=== PATIENT | male | born 1995 | race Caucasian/White ===

== ENCOUNTER 2020-01-20 18:55 | Emergency (ER) | payer SELFPAY ==
[2020-01-20 19:01] VITALS: BP 132/77
--- NOTE | 2020-01-20 20:36 | ER Document Report ---
ED Medical Screen (RME) - General Chief Complaint: Abscess Stated Complaint: SWOLLEN FINGER Time Seen by Provider: 01/20/20 20:23 Primary Care Provider: JD BLACKBURN NP [Primary Care Provider] - Follow up as needed - [facility] Notes: 01/20/20 20:33 24 year old male presents today with complaints of left 2nd phalanx with erythema and induration warmth to touch over the last few days. states about a week ago he thought he had a splinter in his finger and started digging at his finger, which led to erythema and swelling of finger. Pain started about 2 to 3 days ago, 4/5, throbbing. Denies any history of MRSA. states is unable to bend his finger and the redness is extending up to his hand. Has tried peroxide without relief. Patient also would like to be tested for STDs, reports has had penile drainage for the last month. Denies any history of STIs. Has been sexually active without using any barrier methods. Does not know if his girlfriend has tested positive for STIs. Denies any fevers chills, numbness or tingling arms legs, denies any testicular pain, any penile shaft pain. I have greeted and performed a rapid initial assessment of this patient. A comprehensive ED assessment and evaluation of the patient, analysis of test results and completion of the medical decision making process will be conducted by additional ED providers. PHYSICAL EXAMINATION: GENERAL: Well-appearing, well-nourished and in no acute distress. HEAD: Atraumatic, normocephalic. CV: s1, s2 regular LUNGS: No respiratory distress Musculoskeletal: Normal range of motion. Left second phalanx with erythema induration, unable to bend at DIP or PIP, pain with passive extension. Refill less than 3 seconds. NEUROLOGICAL: Normal speech, normal gait. SKIN: Warm, Dry, normal turgor, no rashes or lesions noted. Erythema does not extend to dorsal left hand - Related Data Allergies/Adverse Reactions: No Known Allergies Allergy (Unverified 01/20/20 20:22) Past Medical History - Social History Frequency of alcohol use: None Drug Abuse: None Physical Exam - Vital signs Vitals: Temp Pulse Resp BP Pulse Ox 97.6 F 102 H 20 132/77 H 97 01/20/20 19:00 01/20/20 19:00 01/20/20 19:00 01/20/20 19:00 01/20/20 19:00 Course - Vital Signs Vital signs: Temp Pulse Resp BP Pulse Ox 97.6 F 102 H 20 132/77 H 97 01/20/20 19:00 01/20/20 19:00 01/20/20 19:00 01/20/20 19:00 01/20/20 19:00 Doctor's Discharge - Discharge Referrals: JD BLACKBURN [employer] [Primary Care Provider] - Follow up as needed
[2020-01-20 21:18] LABS: ABSOLUTE BASOPHILS # (AUTO) 0.1 10^3/uL (0.0-0.2); ABSOLUTE EOSINOPHILS # (AUTO) 0.2 10^3/uL (0.0-0.6); ABSOLUTE LYMPHOCYTES (AUTO) 1.7 10^3/uL (0.5-4.7); ABSOLUTE NEUT (AUTO) 14.2 10^3/uL (1.7-8.2); BASOPHILS % (AUTO) 0.3 % (0-2); EOSINOPHILS % (AUTO) 1.3 % (0-6); HEMATOCRIT 43.2 % (37.9-51.0); HEMOGLOBIN 14.2 g/dL (13.5-17.0); LYMPHOCYTES % (AUTO) 9.9 % (13-45); MEAN CORPUSCULAR HEMOGLOBIN 29.9 pg (27.0-33.4); MEAN CORPUSCULAR VOLUME 91 fl (80-97); PLATELET COUNT 293 10^3/uL (150-450); RED BLOOD COUNT 4.77 10^6/uL (4.35-5.55); RED CELL DISTRIBUTION WIDTH 12.2 % (11.5-14.0); SEGMENTED NEUTROPHILS % (AUTO) 82.5 % (42-78); TOTAL CELLS COUNTED % (AUTO) 100 %; WHITE BLOOD COUNT 17.2 10^3/uL (4.0-10.5)
[2020-01-20 21:24] LABS: APPEARANCE,URINE CLEAR; BILIRUBIN,URINE NEGATIVE (NEGATIVE); COLOR,URINE YELLOW; GLUCOSE, URINE NEGATIVE (NEGATIVE); KETONES,URINE NEGATIVE (NEGATIVE); LEUKOCYTE ESTERASE,URINE NEGATIVE (NEGATIVE); NITRITE,URINE NEGATIVE (NEGATIVE); PROTEIN,URINE NEGATIVE (NEGATIVE); URINE SPECIFIC GRAVITY 1.024
--- NOTE | 2020-01-20 21:42 | RADIOLOGY REPORT (SQ) ---
EXAM DESCRIPTION: FINGER LEFT [facility]: XR FINGERS Views: 2 CLINICAL HISTORY: 24 years Male; left 2nd phalanx w/erythema,induration,can't bend; COMPARISON: None. FINDINGS: AP hand and 2 additional views of the left index finger. No acute fracture or dislocation. Joint spaces are preserved. No hyperdense foreign bodies. No soft tissue air. No lytic bone changes. There is mild diffuse soft tissue swelling along the index finger. IMPRESSION: 1. Nonspecific soft tissue edema of the left index finger, but no acute bone findings.
[2020-01-20 21:44] LABS: ALBUMIN 4.5 g/dL (3.5-5.0); ALKALINE PHOSPHATASE 76 U/L (38-126); ANION GAP 13 (5-19); ASPARTATE AMINO TRANSFERASE 31 U/L (17-59); BILIRUBIN,DIRECT 0.3 mg/dL (0.0-0.4); BILIRUBIN,TOTAL 0.8 mg/dL (0.2-1.3); BLOOD UREA NITROGEN 13 mg/dL (7-20); C-REACTIVE PROTEIN 68.2 mg/L (<10.0); CALCIUM 10.2 mg/dL (8.4-10.2); CARBON DIOXIDE 25 mmol/L (22-30); CHLORIDE 99 mmol/L (98-107); GLUCOSE 133 mg/dL (75-110); POTASSIUM 4.9 mmol/L (3.6-5.0); TOTAL PROTEIN 7.9 g/dL (6.3-8.2)
[2020-01-20 22:51] LABS: CHLAM PCR NOT DETECTED (NOT DETECT)
== END 2020-01-21 00:20 | disposition left against medical advice (07) ==
LOC: ER 18:55
DX: L02.512 Cutaneous abscess of left hand (principal)
CPT/HCPCS: 36415; 80053; 81001; 85025; 86140; 87491; 87591; 99281

== ENCOUNTER 2020-01-25 14:43 | Observation (INO) | payer OTHER ==
--- NOTE | 2020-01-25 15:07 | ER Document Report ---
ED Medical Screen (RME) - General Chief Complaint: Finger Injury Stated Complaint: LEFT INDEX FINGER PAIN,SWELLING Time Seen by Provider: 01/25/20 14:50 Primary Care Provider: JD BLACKBURN NP [Primary Care Provider] - Follow up as needed - [facility] Notes: Patient is a 24 y/o male who presents with left finger swelling that began one week ago and worsened in the last couple of days. Patient states he had a splinter in his left index finger which he removed one week ago. It became red and swollen which caused him to come to the emergency department five days ago. He was triaged and had labwork and XRs done but he left before his results were reviewed. He states he has been taking old antibiotics that his dad gave him but cannot recall the name. He denies any fever. - Related Data Allergies/Adverse Reactions: No Known Allergies Allergy (Verified 01/25/20 14:51) Past Medical History - Social History Frequency of alcohol use: None Drug Abuse: Marijuana Physical Exam - Vital signs Vitals: Temp Pulse Resp BP Pulse Ox 98.3 F 115 H 16 134/74 H 98 01/25/20 14:51 01/25/20 14:51 01/25/20 14:51 01/25/20 14:51 01/25/20 14:51 - Extremities Hand: Tender, Swelling, Other - swelling, erythema and warmth to the left index finger, draining abscess to the palmar side Course - Re-evaluation Re-evalutation: I have greeted and performed a rapid initial assessment of this patient. A comprehensive ED assessment and evaluation of the patient, analysis of test results and completion of medical decision making process will be conducted by an additional ED providers. - Vital Signs Vital signs: Temp Pulse Resp BP Pulse Ox 98.3 F 115 H 16 134/74 H 98 01/25/20 14:51 01/25/20 14:51 01/25/20 14:51 01/25/20 14:51 01/25/20 14:51 Doctor's Discharge - Discharge Referrals: JD BLACKBURN NP [Primary Care Provider] - Follow up as needed
[2020-01-25 15:27] LABS: ABSOLUTE EOSINOPHILS # (AUTO) 0.2 10^3/uL (0.0-0.6); ABSOLUTE LYMPHOCYTES (AUTO) 1.8 10^3/uL (0.5-4.7); ABSOLUTE MONOCYTES (AUTO) 0.8 10^3/uL (0.1-1.4); ABSOLUTE NEUT (AUTO) 12.2 10^3/uL (1.7-8.2); BASOPHILS % (AUTO) 0.2 % (0-2); EOSINOPHILS % (AUTO) 1.1 % (0-6); HEMATOCRIT 41.4 % (37.9-51.0); HEMOGLOBIN 13.9 g/dL (13.5-17.0); LYMPHOCYTES % (AUTO) 12.1 % (13-45); MEAN CORPUSCULAR HEMOGLOBIN 30.1 pg (27.0-33.4); MEAN CORPUSCULAR HGB CONC 33.6 g/dL (32.0-36.0); MEAN CORPUSCULAR VOLUME 89 fl (80-97); MONOCYTES % (AUTO) 5.6 % (3-13); PLATELET COUNT 374 10^3/uL (150-450); RED BLOOD COUNT 4.63 10^6/uL (4.35-5.55); RED CELL DISTRIBUTION WIDTH 12.4 % (11.5-14.0); TOTAL CELLS COUNTED % (AUTO) 100 %
[2020-01-25 15:49] LABS: ALBUMIN 4.3 g/dL (3.5-5.0); ALKALINE PHOSPHATASE 77 U/L (38-126); ANION GAP 10 (5-19); ASPARTATE AMINO TRANSFERASE 27 U/L (17-59); BILIRUBIN,DIRECT 0.1 mg/dL (0.0-0.4); BILIRUBIN,TOTAL 0.6 mg/dL (0.2-1.3); BLOOD UREA NITROGEN 15 mg/dL (7-20); C-REACTIVE PROTEIN 49.1 mg/L (<10.0); CALCIUM 10.1 mg/dL (8.4-10.2); CARBON DIOXIDE 31 mmol/L (22-30); CHLORIDE 101 mmol/L (98-107); GLUCOSE 106 mg/dL (75-110); POTASSIUM 4.3 mmol/L (3.6-5.0); TOTAL PROTEIN 7.9 g/dL (6.3-8.2)
--- NOTE | 2020-01-25 16:03 | RADIOLOGY REPORT (SQ) ---
EXAM DESCRIPTION: HAND LEFT 3 VIEWS IMAGES COMPLETED DATE/TIME: 01/25/2020 3:20 pm REASON FOR STUDY: left hand swelling COMPARISON: None. EXAM PARAMETERS: NUMBER OF VIEWS: Three views. TECHNIQUE: AP, lateral and oblique radiographic images acquired of the left hand. LIMITATIONS: None. FINDINGS: MINERALIZATION: Normal. BONES: No acute fracture or dislocation. No worrisome bone lesions. JOINTS: No effusions. SOFT TISSUES: Diffuse soft tissue swelling of the index finger. No soft tissue foreign body or calci fications. OTHER: No other significant finding. IMPRESSION: Diffuse soft tissue swelling of the index finger without identifiable acute osseous abno rmality. TECHNICAL DOCUMENTATION: JOB ID: [id number] 2010 [employer]- All Rights Reserved Reading location - IP/workstation name: [email or web address]
[2020-01-25 16:06] LABS: ERYTHROCYTE SEDIMENTATION RATE 70 mm/hr (0-15)
[2020-01-25] MEDS ORDERED: VANCOMYCIN HCL INJ 1000 MG VIAL IV ONE (18:02)
[2020-01-25] MEDS ORDERED: NORMAL SALINE 1000 ML 1,000 ML IV ONE (18:07)
[2020-01-25] MEDS ORDERED: HYDROCODONE/ACETAMINOPHEN 5-325 MG TABLET PO ONE (18:15)
--- NOTE | 2020-01-25 18:20 | ER Document Report ---
ED Hand/Wrist Injury - General Chief Complaint: Finger Injury Stated Complaint: LEFT INDEX FINGER PAIN,SWELLING Time Seen by Provider: 01/25/20 14:50 Notes: Patient is a 24-year-old male presents emergency department with left index finger pain and swelling. Patient states that he got a splinter in his left index finger about a week and a half ago. Patient states that he was taking some antibiotics that his family member had leftover. States that the swelling has not gotten any better. Patient is right-handed. States that he has had some purulent drainage from the area. Patient does admit to some drug use, states that he uses heroin and methamphetamine, but "has never injected it." Denies any fever. - Related Data Allergies/Adverse Reactions: No Known Allergies Allergy (Verified 01/25/20 14:51) Past Medical History - General Information source: Patient - Social History Smoking Status: Current Every Day Smoker Frequency of alcohol use: None Drug Abuse: Heroin, Marijuana, Methamphetamine Family History: Reviewed & Not Pertinent Review of Systems - Review of Systems Notes: REVIEW OF SYSTEMS: CONSTITUTIONAL : Denies recent illness. Denies recent unintentional weight loss. Denies fever, chills, or sweats. EENT: Denies eye, ear, throat, or mouth pain, discharge, or symptoms. Denies nasal or sinus congestion. CARDIOVASCULAR: Denies chest pain. RESPIRATORY: Denies shortness of breath, cough, congestion, difficulty br eathing, or wheezing. GASTROINTESTINAL: Denies nausea, vomiting, and diarrhea. Denies abdominal pain. Denies constipation. GENITOURINARY: Denies difficulty urinating, burning, blood in urine, urgency or frequency. MUSCULOSKELETAL: Denies neck and back pain. See HPI. SKIN: Denies rash, itchiness, or lesions HEMATOLOGIC : Denies easy bruising or bleeding. LYMPHATIC: Denies swollen, painful, enlarged glands. NEUROLOGICAL: Denies no numbness or tingling denies weakness. Denies headache. Denies altered mental status. Denies alteration in speech. PSYCHIATRIC: Denies stress, anxiety, alteration in sleep patterns, or depression. All other systems reviewed and negative. Physical Exam - Vital signs Vitals: Temp Pulse Resp BP Pulse Ox 98.3 F 115 H 16 134/74 H 98 01/25/20 14:51 01/25/20 14:51 01/25/20 14:51 01/25/20 14:51 01/25/20 14:51 - Notes Notes: PHYSICAL EXAMINATION: GENERAL: Appears well, healthy, well-nourished, no acute distress. HEAD: Normocephalic, atraumatic. EYES: PERRL, conjunctiva normal, all extraocular movements intact, sclera nonicteric ENT: Moist mucous membranes. NECK: Supple, no noticeable swelling, redness, rash. Normal range of motion. LUNGS: Equal breath sounds bilaterally and clear to auscultation. No wheezes rales or rhonchi. CARDIOVASCULAR: S1-S2, regular rate, regular rhythm. Radial pulses 2+, normal. ABDOMEN: Normoactive bowel sounds. Soft, nontender, no guarding, no rebound tenderness, and no masses palpated. EXTREMITIES: Patient unable to flex left second digit. Erythema noted to left s econd digit. Fluctuance noted to MIP joint. NEUROLOGICAL: Moves all extremities upon command. PSYCH: Normal mood, normal affect. SKIN: Warm, dry. No rash, lesions, ulcerations noted. Normal skin turgor. Course - Re-evaluation Re-evalutation: 01/25/20 18:16 Hematology shows a leukocytosis of 15,000 with a left shift. ESR is 70. Added on a CRP. X-ray is unremarkable. Patient is unable to flex left second digit, which is concerning for tenosynovitis. Paged Dr. Hernandez. Will await callback. 01/25/20 18:[address] Hernandez, the orthopedic on-call. Patient will be admitted under observation to the medical floor. - Vital Signs Vital signs: Temp Pulse Resp BP Pulse Ox 97.8 F 86 14 130/84 H 98 01/25/20 19:28 01/25/20 19:28 01/25/20 19:28 01/25/20 19:28 01/25/20 19:28 - Laboratory Results Result Diagrams: 01/25/20 15:10 01/25/20 15:10 Laboratory Results Interpreted: 01/25/20 01/25/20 15:10 15:10 WBC 15.0 H Lymph % (Auto) 12.1 L Absolute Neuts (auto) 12.2 H Seg Neutrophils % 81.0 H ESR 70 H Carbon Dioxide 31 H C-Reactive Protein 49.1 H Critical Laboratory Results Reviewed: No Critical Results - Radiology Results Critical Radiology Results Reviewed: No Critical Results Discharge - Discharge Clinical Impression: Tenosynovitis of finger Sepsis Qualifiers: Sepsis type: sepsis due to unspecified organism Sepsis acute organ dysfunction status: without acute organ dysfunction Qualified Code(s): A41.9 - Sepsis, unspecified organism Condition: Stable Disposition: ADMITTED OBSERVATION Admitting Provider: Dr. Hernandez Unit Admitted: Medical Floor
[2020-01-25] MEDS: ACETAMINOPHEN 325 MG TABLET PO SCH ×2 (21:03→22:45)
[2020-01-26] MEDS: ACETAMINOPHEN 325 MG TABLET PO SCH ×5 (00:12→13:55)
[2020-01-26] MEDS: IBUPROFEN 600 MG TABLET PO PRN ×2 (00:12→16:14)
--- NOTE | 2020-01-26 08:14 | PDOC H&P ---
History of Present Illness Admission Date/PCP: 01/25/20 18:35 JD BLACKBURN NP Patient complains of: Left index finger pain, swelling, and purulent drainage. History of Present Illness: AMA NORTON is a 24 year old male with a history of polysubstance abuse. The patient had been admitted to the emergency department at [place] 01/20/2020 complaining of an infection in his left index finger. The patient left without being seen by medical providers. The patient reports that he injured his left index finger 3 days prior to that emergency department visit. He states that he had a splinter in his finger from an old deck. He reports that he left the emergency department and performed soaks of his digit and hydrogen peroxide. He states that he has been taking an oral antibiotic that had been prescribed for someone else. He does not know the name of the antibiotic. He returned to the emergency department last evening as the symptoms of infection were worsening. Past Medical History Cardiac Medical History: Reports: None Pulmonary Medical History: Reports: None EENT Medical History: Reports: None Neurological Medical History: Reports: None Endocrine Medical History: Reports: None Renal/ Medical History: Reports: None Malignancy Medical History: Reports: None GI Medical History: Reports: None Musculoskeltal Medical History: Denies: None, Arthritis, Fibromyalgia, Gout, Other Skin Medical History: Denies: None, Eczema, Psoriasis, Other Psychiatric Medical History: Reports: Substance Abuse, Tobacco Dependency Denies: Depression Hematology: Reports: None Infectious Medical History: Reports: None Past Surgical History Past Surgical History: Denies: None, Appendectomy, Cardiac Catheterization, Carotid Endarterectomy, Cholecystectomy, Colostomy, Coronary Artery Bypass Graft, Coronary Stent, Gastric Bypass Surgery, Herniorrhaphy, Hip Replacement, Ileostomy, Internal Defibrillator, Knee Replacement, Orthopedic Surgery, Pacemaker, Renal Transplant, Splenectomy, Thyroidectomy, Tonsillectomy, Valve Replacement, Vascular Surgery, Other Social History Smoking Status: Current Every Day Smoker Frequency of Alcohol Use: Social Drugs: Heroin, Marijuana, Other Hx Prescription Drug Abuse: No Family History Family History: Reviewed & Not Pertinent Parental Family History Reviewed: No Children Family History Reviewed: No Sibling(s) Family History Reviewed.: No Medication/Allergy Allergies/Adverse Reactions: No Known Allergies Allergy (Verified 01/25/20 14:51) Physical Exam Vital Signs: Temp Pulse Resp BP Pulse Ox 99.2 F 79 16 134/75 H 100 01/25/20 23:58 01/25/20 23:58 01/25/20 23:58 01/25/20 23:58 01/25/20 23:58 Intake & Output 01/25/20 01/26/20 01/27/20 06:59 06:59 06:59 Intake Total 1260 Balance 1260 Weight 92.5 kg General appearance: PRESENT: no acute distress, well-developed, well-nourished Head exam: PRESENT: atraumatic, normocephalic Eye exam: PRESENT: conjunctiva pink, EOMI, PERRLA. ABSENT: scleral icterus Mouth exam: PRESENT: moist, tongue midline Throat exam: ABSENT: post pharyngeal erythema, tonsillar erythema, tonsillar exudate, tonsillogmegaly, other Neck exam: ABSENT: carotid bruit, JVD, lymphadenopathy, thyromegaly Respiratory exam: PRESENT: clear to auscultation [place]. ABSENT: rales, rhonchi, wheezes Cardiovascular exam: PRESENT: RRR. ABSENT: diastolic murmur, rubs, systolic murmur Pulses: PRESENT: normal dorsalis pedis pul Vascular exam: PRESENT: normal capillary refill GI/Abdominal exam: PRESENT: normal bowel sounds, soft. ABSENT: distended, guarding, mass, organolmegaly, rebound, tenderness Rectal exam: PRESENT: deferred Extremities exam: PRESENT: other - There is desquamation of the skin of the proximal phalanx. The patient is able to fully extend the digit. Musculoskeletal exam: PRESENT: other - There is a traumatic wound localized over the volar aspect of the proximal interphalangeal joint of the left index finger. There is swelling of the flexor sheath distal to this wound. There does not appear to be any proximal involvement of the flexor sheath. Results Laboratory Results: 01/25/20 15:10 01/25/20 15:10 01/25/20 01/25/20 01/25/20 15:10 15:10 15:10 WBC 15.0 H RBC 4.63 Hgb 13.9 Hct 41.4 MCV 89 MCH 30.1 MCHC 33.6 RDW 12.4 Plt Count 374 Seg Neutrophils % 81.0 H Sodium 141.6 Potassium 4.3 Chloride 101 Carbon Dioxide 31 H Anion Gap 10 BUN 15 Creatinine 0.88 Est GFR ( Amer) > 60 Glucose 106 Lactic Acid 1.3 Calcium 10.1 Total Bilirubin 0.6 AST 27 Alkaline Phosphatase 77 C-Reactive Protein 49.1 H Total Protein 7.9 Albumin 4.3 Impressions: Hand X-Ray 01/25/20 14:57 IMPRESSION: Diffuse soft tissue swelling of the index finger without identifiable acute osseous abnormality. Assessment & Plan - Diagnosis (1) Sepsis Qualifiers: Sepsis type: sepsis due to unspecified organism Sepsis acute organ dysfunction status: without acute organ dysfunction Qualified Code(s): A41.9 - Sepsis, unspecified organism Is this a current diagnosis for this admission?: Yes - Time Time Spent: 30 to 50 Minutes Anticipated Discharge Disposition: Home, Self Care Anticipated Discharge Timeframe: within 24 hours - Plan Summary Plan Summary: The patient is a 24-year-old man with polysubstance abuse. He reports a traumatic injury to his left index finger somewhere around 01/17/2020. He had been admitted to the emergency department on 01/20/2020 but left without being seen. He returns with a worsening infection of the left index finger which appears to involve the tendon sheath distal to the proximal interphalangeal joint. I have recommended surgical debridement. Risk, benefits, and alternatives were discussed with the patient. Risks include: The risk of with anesthesia, the risk of persistent infection, the risk of loss of the digit or extremity, the risk of stiffness of the digit, the risk of injury to the nerves and vessels of the digit, and the possible need for additional surgical procedures. We have discussed that his delay in seeking treatment will likely compromise the ultimate outcome and lead to some loss of use of the digit. An opportunity for questions was provided to the patient. The patient expressed understanding and wishes to proceed with the surgical procedure.
[2020-01-26 08:45] LABS: URINE BARBITURATES SCREEN NEGATIVE; URINE BENZODIAZEPINES SCREEN NEGATIVE; URINE COCAINE SCREEN NEGATIVE; URINE METHADONE SCREEN NEGATIVE; URINE PHENCYCLIDINE SCREEN NEGATIVE
[2020-01-26 09:35] LABS: URINE MARIJUANA (THC) SCREEN UNCONFIRMED POSITIVE
[2020-01-26] MEDS ORDERED: LIDOCAINE 1% INJ-PF (10 MG/ML) 30 ML SDV ONE (10:34)
[2020-01-26] MEDS ORDERED: LIDOCAINE 2% INJ (20 MG/ML) 20 ML MDV ONE (10:39)
[2020-01-26] MEDS ORDERED: FENTANYL CITRATE INJ/PF 100 MCG/2 ML AMPUL ONE (10:43)
[2020-01-26] MEDS ORDERED: MIDAZOLAM 2 MG/2 ML INJ ONE (10:44)
[2020-01-26] MEDS ORDERED: PROPOFOL INJ 200 MG/20 ML VIAL IV ONE ×2 (10:44)
[2020-01-26] MEDS ORDERED: CEFAZOLIN INJ 1 GM VIAL ONE (11:00)
[2020-01-26] MEDS ORDERED: VANCOMYCIN HCL INJ 500 MG VIAL ONE (11:02)
[2020-01-26] MEDS ORDERED: FENTANYL CITRATE INJ/PF 100 MCG/2 ML AMPUL IV PRN ×3 (11:27)
[2020-01-26] MEDS ORDERED: PROMETHAZINE HCL INJ 25 MG/1 ML VIAL IV PRN ×2 (11:27)
[2020-01-26] MEDS ORDERED: MEPERIDINE HCL/PF INJ 25 MG/1 ML DISP.SYRIN IV PRN (11:27)
[2020-01-26] MEDS ORDERED: OXYCODONE-ACETAMINOPHEN 5-325 MG TABLET PO PRN ×3 (11:27→12:21)
[2020-01-26] MEDS ORDERED: ONDANSETRON HCL INJ/PF 4 MG/2 ML SDV IV PRN ×2 (11:27→12:22)
[2020-01-26] MEDS ORDERED: DIPHENHYDRAMINE HCL 50 MG/ML VIAL IV PRN (11:27)
--- NOTE | 2020-01-26 12:19 | Operative Report ---
Operative Report DATE OF SURGERY: 01/26/20 PREOPERATIVE DIAGNOSIS: Left index finger abscess. Left index finger suppurati ve flexor tenosynovitis POSTOPERATIVE DIAGNOSIS: Same OPERATION: 1 incision and debridement abscess left index finger. 2 incision and drainage suppurative flexor tenosynovitis left index finger SURGEON: TATE LUZ ANESTHESIA: IV-Regional TISSUE REMOVED OR ALTERED: Epidermis removed. Fat necrosis debrided COMPLICATIONS: None ESTIMATED BLOOD LOSS: Minimal PROCEDURE: Indications for procedure: Patient is a 24-year-old man with polysubstance abuse. Toxicology screen comes back positive for recent methamphetamine use. The patient had presented to the emergency department 01/20/2020 complaining of an infection in his left index finger. The patient left the emergency department without being seen. Patient presented back to the emergency department last evening complaining of worsening symptoms of pain, swelling, and drainage from the index finger. Description of procedure: Patient received a Reubens block anesthetic as it was unsafe to perform a general anesthetic due to his recent methamphetamine use. The patient was then positioned supine on the operating room table. All bony prominences were padded. The left upper extremity was sterilely prepped with ChloraPrep and draped in standard fashion. There was significant desquamation of the epidermal layer throughout the digit. All necrotic epidermal tissue was taken off of the digit. Once removed the infection was found to have eroded through the dermal tissue to the underlying flexor sheath overlying the middle phalanx and distal phalanx. These areas of necrosis were connected allowing a flap to be raised. Deep cultures were now taken. Debridement of all necrotic tissue in this area was performed with a rongeur with care taken to protect the digital nerves. There was a significant amount of fat necrosis this was all debrided. The infection did not progress proximal in the flexor sheath. The wound was then copiously irrigated with irrisept irrigation solution. At the conclusion of the procedure the digit was completely clean. The patient did receive 1 g of vancomycin while in the operating theater. The patient will received 2 g of ceftazidime in the recovery room.
--- NOTE | 2020-01-26 12:23 | Discharge Summary ---
Discharge Summary (SDC) - Discharge Final Diagnosis: 1. Left index finger deep abscess 2. Left index distal flexor sheath suppurative tenosynovitis Date of Surgery: 01/26/20 Discharge Date: 01/26/20 Condition: Good Referrals: JD BLACKBURN [employer] [Primary Care Provider] - Follow up as needed Discharge Diet: As Tolerated Respiratory Treatments at Home: Deep Breathing/Coughing Discharge Activity: Activity As Tolerated, Other - Patient is required to soak his left index finger in warm water for 20 minutes every four hours while awake. Home Care Assistance: None Needed
[2020-01-26] MEDS ORDERED: CEFTAZIDIME PENTAHYDRATE 2 GM in DEXTROSE 5%-WATER 100 ML IV SCH (13:00)
[2020-01-26] MEDS ORDERED: VANCOMYCIN HCL 1,500 MG in DEXTROSE 5%-WATER 250 ML IV SCH (14:00)
[2020-01-26] MEDS ORDERED: INFLUENZA QUAD (6MOS+) 2020-21 VAC 0.5 ML SYR IM ONE (17:22)
[2020-01-26 17:26] VITALS: BP 157/59
== END 2020-01-26 17:51 | disposition home or self-care (01) ==
LOC: ER 14:43 → EH 18:35 → 4S 21:21
PROVIDERS: ADMIT Orthopaedic Surgery; ATTEND Orthopaedic Surgery
DX: L02.512 Cutaneous abscess of left hand (principal); M65.842 Other synovitis and tenosynovitis, left hand; A41.9 Sepsis, unspecified organism; M79.645 Pain in left finger(s); F12.10 Cannabis abuse, uncomplicated; F19.10 Other psychoactive substance abuse, uncomplicated; Z23 Encounter for immunization; W45.8XXA Other foreign body or object entering through skin, initial encounter; F17.210 Nicotine dependence, cigarettes, uncomplicated; Z20.828 Contact with and (suspected) exposure to other viral communicable diseases
CPT/HCPCS: 11043; 99285; 96374; 36415; 87040; 87070 ×2; 87205 ×2; 83605; 85025; 85652; 0241U ×4; 87075 ×2; 86140; 87077 ×2; 80053; 87186 ×2; 80307; 73130; 90686; 99140; 01810; G0378; G0008; J2250; J3490 ×2; J3010; J3370 ×2; J7030; J2704; C9803; 90471; J0690